=== PATIENT | male | born 1985 | race African-American/Black ===

== ENCOUNTER 2018-04-11 08:35 | Observation (INO) ==
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
[2018-04-11] MEDS ORDERED: Acetaminophen 325 MG Tablet PO PRN (15:18)
[2018-04-11] MEDS ORDERED: Naloxone Inj 0.4 MG/ML Vial IV.PUSH PRN (15:18)
[2018-04-11] MEDS ORDERED: Temazepam 15 MG Capsule PO PRN (15:18)
[2018-04-11] MEDS ORDERED: Bisacodyl 10 MG Supp RECTAL PRN (15:18)
[2018-04-12 03:37] VITALS: TEMP 97.1
[2018-04-12 07:21] LABS: Hematocrit 43.7 % (39.0-51.0); Hemoglobin 14.7 gm/dL (13.0-17.0); Mean Corpuscular HGB Conc 33.6 % (32.0-36.0); Mean Corpuscular Hemoglobin 33.9 pg (27.0-34.0); Mean Corpuscular Volume 100.7 fL (80.0-100.0); Mean Platelet Volume 8.3 fL (7.0-11.0); Platelet Count 157 th/mm3 (150-450); Red Blood Count 4.34 mil/mm3 (4.50-5.90); Red Cell Distribution Width 14.4 % (11.6-17.2); White Blood Count 4.4 th/mm3 (4.0-11.0)
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
[2018-04-12 08:55] VITALS: BP 132/56; PULSE 66; RESP 16; O2SAT 100
== END 2018-04-12 09:34 | disposition home or self-care (01) ==
LOC: NEDDLT 08:35 → NEPFCDU 08:35
PROVIDERS: ADMIT Family Medicine; ATTEND Family Medicine